=== PATIENT | female | born 1950 | race Hispanic/Latino ===

== ENCOUNTER 2020-03-01 11:29 | Emergency (ER) | payer OTHER | END 2020-03-01 15:20 | disposition home or self-care (01) | LOC: EDH 11:29 | DX: S39.012A Strain of muscle, fascia and tendon of lower back, initial encounter (principal); S63.641A Sprain of metacarpophalangeal joint of right thumb, initial encounter; S20.212A Contusion of left front wall of thorax, initial encounter; S20.211A Contusion of right front wall of thorax, initial encounter; V49.19XA Passenger injured in collision with other motor vehicles in nontraffic accident, initial encounter; Z88.6 Allergy status to analgesic agent; Y93.89 Activity, other specified; Y92.89 Other specified places as the place of occurrence of the external cause; Y99.8 Other external cause status | CPT/HCPCS: 29125; 71250; 72100; 73130; 93005 ==